=== PATIENT | female | born 1980 | race African-American/Black ===

== ENCOUNTER → 2016-11-08 | Outpatient (REF) | LOC: WSOH 10:56 | DX: Z00.00 Encounter for general adult medical examination without abnormal findings (principal) ==

== ENCOUNTER → 2023-04-03 | Outpatient (CLI) | payer OTHER | LOC: COL.RAD 13:07 | DX: S09.90XA Unspecified injury of head, initial encounter (principal); M54.2 Cervicalgia; W19.XXXA Unspecified fall, initial encounter ==